=== PATIENT | male | born 1995 | race Caucasian/White ===

== ENCOUNTER 2016-08-07 23:47 | Emergency (ER) | payer BC ==
[~2016-08-07] VITALS: Ht 160 cm; Wt 66.4 kg
[~2016-08-07 23:47] MED LIST: ABSORICA40 MG PO; MELATONIN5 M1 PO; PREVACID 30MG30 M1 PO; PROTONIX 40MG T40 MG PO
[2016-08-08 00:01] VITALS: BP 145/82; TEMP 98.6
[2016-08-08] MEDS ORDERED: LEXAPRO20 MG (00:04)
[2016-08-08] MEDS ORDERED: ATARAX 25MG25 MG/TAB PO (00:04)
[2016-08-08 02:49] VITALS: PULSE 64
== END 2016-08-08 02:51 | disposition home or self-care (01) ==
LOC: COL.ER 23:47
DX: S61.012A Laceration without foreign body of left thumb without damage to nail, initial encounter (principal); W26.0XXA Contact with knife, initial encounter; Y92.009 Unspecified place in unspecified non-institutional (private) residence as the place of occurrence of the external cause